=== PATIENT | male | born 1995 | race Caucasian/White ===

== ENCOUNTER 2017-03-15 19:55 | Emergency (ER) | payer SELFPAY ==
--- NOTE | 2017-03-16 01:47 | Emergency Department Report ---
ED Rash HPI - HPI Chief Complaint: Skin Rash Stated Complaint: TICK BITES Time Seen by Provider: 03/16/17 01:41 Duration: Today Location: Other (tick bite to genital area) Suspected Cause: Insect (small tick) Rash Symptoms: No Itching, No Facial Swelling, No Tongue/Oral Swelling, No Breathing Difficulties, No Choking Sensation, No Wheezing/Dyspnea, No Peeling, No Blistering, No Fever, No Lightheaded, No Malaise, No Myalgias Severity: mild (patient reports that he was having pain 5 on a 10 but none now.) Other History: reports that he had tick bites his genital area today. Patient has dogs. He said he doesn't know if he was exposed in his backyard are from his dog. He said he pulled a small tick that is light a small mole off his penis today. This vaccine is not up-to-date. She has had these concerned about infection. Denies any fever or chills. Denies nausea vomiting or headache. ED Review of Systems ROS: Stated complaint: TICK BITES Other details as noted in HPI Comment: All other systems reviewed and negative Constitutional: no symptoms reported Respiratory: no symptoms reported Cardiovascular: denies: chest pain, palpitations, edema, syncope Gastrointestinal: denies: abdominal pain, nausea, vomiting Musculoskeletal: denies: back pain, joint swelling, arthralgia, myalgia Skin: other (tick bite to genital area) Neurological: denies: headache, weakness, numbness, paresthesias, confusion, abnormal gait, vertigo ED Past Medical Hx - Past Medical History Previous Medical History?: No - Surgical History Past Surgical History?: Yes Additional Surgical History: Cleft pallete - Family History Family history: no significant - Social History Smoking Status: Never Smoker Substance Use Type: None Other Social History: - Medications Home Medications: Home Medications Medication Instructions Recorded Confirmed Last Taken Type Doxycycline [Vibramycin CAP] 100 mg PO Q12HR #28 capsule 03/16/17 Unknown Rx Rash Exam - Exam General: Vital signs noted. No distress. Alert and acting appropriately. 21-year-old male well-nourished well-developed in no acute distress HEENT: No Periorbital Edema, No Conjuctival Injection, No Chemosis, No Perioral Edema, No Tongue Edema, No Uvular Edema, No Compromised Airway, No Drooling Lungs: Yes Good Air Exchange, No Wheezes, No Ronchi, No Stridor, No Cough, No Labored Respirations, No Retractions, No Use of Accessory Muscles, No Other Abnormal Lung Sounds Heart: Yes Regular, No Murmur Skin: Yes Other (small pin-sized area noted to left shaft of penis. Nontender to palpate without any sign of erythema. No penile lesions.), No Urticarial Rash, No Maculopapular Rash, No Morbilliform rash, No Bulla(e), No Excoriations , No Weeping, No Tenderness, No Erythema, No Edema, No Encrustations Other: Positive: Abdomen Normal, Neurologic Normal, Musculoskeletal Normal ED Course Vital Signs 03/15/17 20:19 Temperature 98.6 F Pulse Rate 87 Respiratory 17 Rate Blood Pressure 131/71 Blood Pressure 131/71 [Left] O2 Sat by Pulse 96 Oximetry - Reevaluation(s) Reevaluation #1: 03/16/17 02:37 given tetanus vaccine in emergency room. ED Medical Decision Making - Medical Decision Making ED course: Patient here reports that he had small tick bite to his penis today and he removed the tick but he has small area to penis and he is worried about infection. Physical findings first small pin-sized area without any signs of infection to left shaft of penis. Patient given Boostrix 0.5 mL to update vaccine. Discussed with him Lyme disease and went to obtain lab to check for Lyme disease. He does not have a primary care physician so I told him to follow up with [facility]. PT is asymptomatic and will be placed on doxycycline for 2 weeks. Discharge Home with family in stable condition. Instructed to Get tested for Lyme disease in 6 weeks Assessment/plan 1. Tick bite.-Genital area Discharge home in stable Condition with prescription for doxycycline as he requested to be to be treated. Follow-up at [facility] Critical care attestation.: If time is entered above; I have spent that time in minutes in the direct care of this critically ill patient, excluding procedure time. ED Disposition Clinical Impression: Tick bite Qualifiers: Encounter type: initial encounter Qualified Code(s): W57.XXXA - Bitten or stung by nonvenomous insect and other nonvenomous arthropods, initial encounter Disposition: - TO HOME OR SELFCARE Is pt being admited?: No Does the pt Need Aspirin: No Condition: Stable Instructions: Tick Bite (ED), Lyme Disease (ED) Additional Instructions: Follow up with [facility] in 2-3 days and they will monitor U for Lyme disease. Take doxycycline as prescribed From the days prescription of the tick that we spoke about, there is low probability that you will contract Lyme disease Prescriptions: Doxycycline [Vibramycin CAP] 100 mg PO Q12HR #28 capsule Referrals: [facility] [Outside] - 2-3 Days Forms: Accompanied Note, Work/School Release Form(ED)
[2017-03-16] MEDS ORDERED: BOOSTRIX IM ONE (01:59)
[2017-03-16 03:28] VITALS: BP 121/62
== END 2017-03-16 02:55 | disposition home or self-care (01) ==
LOC: ED 19:55
DX: S30.862A Insect bite (nonvenomous) of penis, initial encounter (principal); W57.XXXA Bitten or stung by nonvenomous insect and other nonvenomous arthropods, initial encounter; Y93.89 Activity, other specified; Y92.89 Other specified places as the place of occurrence of the external cause; Y99.8 Other external cause status
CPT/HCPCS: 90471; 90715; 99282